=== PATIENT | male | born 1965 | race Caucasian/White ===

== ENCOUNTER 2022-12-02 16:31 | Emergency (ER) | payer BC, SELFPAY ==
[2022-12-02 16:34] VITALS: BP 161/112; PULSE 73; RESP 17; TEMP 37.1; O2SAT 95; BMI 34.8
--- NOTE | 2022-12-02 16:39 | ECG_ITS ---
[facility] Test Date: 2022-12-02 Pat Name: Manuel Zimmerman Department: Room: Gender: Male Radio Frequency Technician: : 1965 Requested By: Jerod Snow Order Number: [id number] Miguel Wu MD: Nino Kamara M.D. Measurements Intervals [place] Rate: 71 P: 28 WI: 186 QRS: 33 QRSD: 98 T: -8 QT: 360 QTc: 392 Interpretive Statements SINUS RHYTHM POSSIBLE LEFT ATRIAL ENLARGEMENT [-0.1mV P-WAVE IN V1/V2] No previous ECG available for comparison Electronically Signed On 12-03-2022 1:10:11 CDT by Nino Kamara M.D. [id number]
[2022-12-02 17:48] LABS: Basophils # 0.1 10^3/uL (0.0-0.1); Basophils % 0.6 %; Eosinophils # 0.1 10^3/uL (0.0-0.8); Eosinophils % 1.4 %; Hematocrit 47.7 % (42.0-52.0); Hemoglobin 15.7 g/dL (11.7-16.6); Lymphocytes # 1.5 10^3/uL (0.8-4.8); Lymphocytes % 17.8 %; Mean Corpuscular HGB Conc 32.9 g/dL (30.0-36.0); Mean Corpuscular Hemoglobin 29.7 pg (28.0-34.0); Mean Corpuscular Volume 90.3 fl (80-94); Mean Platelet Volume 9.8 fL (7.4-10.4); Monocytes # 0.6 10^3/uL (0.2-0.9); Monocytes % 7.4 %; Neutrophils # 6.12 10^3/uL (1.8-7.7); Neutrophils % 72.7 %; Nucleated Red Blood Cells % 0 %; Platelet Count 256 10^3/cmm (130-400); Red Blood Count 5.28 10^6/uL (4.1-5.3); Red Cell Distribution Width 13.2 % (12.1-15.1); White Blood Count 8.4 10^3/uL (4.0-10.0)
[2022-12-02 18:06] LABS: Troponin(5th) Baseline 9 ng/L (0-15)
[2022-12-02 18:15] LABS: Alanine Aminotransferase 27 U/L (0-41); Albumin Level 4.7 g/dL (3.5-5.2); Alkaline Phosphatase 80 U/L (40-130); Anion Gap 14.5 (5-19); Aspartate Amino Transferase 18 U/L (0-40); Blood Urea Nitrogen 13 mg/dL (6-20); C Reactive Protein 12.5 mg/L (0.0-4.9); Calcium 9.4 mg/dL (8.5-10.5); Carbon Dioxide 25 mmol/L (22-29); Chloride 102 mmol/L (98-107); Globulin 2.4 g/dL (1.3-4.6); Glomerular Filtration Rate 99.6 mL/min (90-130); Glucose 88 mg/dL (65-115); Lipase 19 U/L (13-60); NT Pro B Type Natriuretic Pept 36 pg/mL (0-125); Osmolality Calculated 284 mOsm/kg (285-295); Potassium 4.5 mmol/L (3.5-5.1); Sodium 137 mmol/L (136-145); Total Bilirubin 0.5 mg/dL (0.15-1.2); Total Protein 7.1 g/dL (6.6-8.7)
[2022-12-02 18:18] VITALS: BP 137/99; PULSE 66; RESP 14
--- NOTE | 2022-12-02 18:30 | ED_ITS ---
HPI - Chest Pain General: Chief Complaint: Chest Pain Stated Complaint: chest pain Time Seen by Provider: 12/02/22 18:17 History of Present Illness: Patient presents to the ER with intermittent chest pressure for the last 2 days. Patient states this is in the center of his chest. He has had no radiation or migration. Patient rates this is mild. Patient has no cardiac history such as previous MIs, stents, cardiomyopathy, heart failure. But it does run in the patient's family. There is nothing the patient can do that will bring this on nor stop it when it comes on. This is not exertionally induced. Review of Systems 2 General: Reports: 10 or more systems reviewed and unremarkable except in HPI and below Physical Exam Const: COMMON NORMALS: no acute distress, average body habitus, patient oriented x3, no limitations, healthy appearing, alert and well nourished HENMT: COMMON NORMALS: normocephalic, atraumatic, hearing grossly normal bilaterally, external ears normal, Normal external nose present and moist oral mucous membranes HEAD & SCALP: normocephalic and atraumatic NOSE: Normal external nose present EXTERNAL EAR: Yes external ears normal Eye: COMMON NORMALS: Equal, round and reactive pupils present, EOMs intact bilaterally, conjunctivae normal and no scleral icterus CONJUNCTIVA: Yes conjunctivae normal PUPIL: Yes Equal, round and reactive pupils present Neck/C-Spine: COMMON NORMALS: full ROM, no lymphadenopathy, supple, no meningeal signs, no JVD and Thyroid normal THYROID: Thyroid normal Chest: COMMONS NORMALS: normal inspection of the chest and normal palpation of entire chest wall Resp: COMMON NORMALS: normal respiratory effort, No retractions, No use of accessory muscles and clear to auscultation bilaterally AUSCULTATION: clear to auscultation bilaterally Cardio: COMMON NORMALS: no JVD, regular rate, regular rhythm, S1 normal heart sound present, S2 normal heart sound present, No gallops present (Cardio), No clicks present (Cardio), No murmurs present (Cardio) and No rub (Cardio) RATE: regular rate RHYTHM: regular rhythm HEART SOUNDS: S1 normal heart sound present and S2 normal heart sound present GI: COMMON NORMALS: Normal to inspection, nondistended, normoactive bowel sounds present, Soft to palpation, non-tender and No hepatosplenomegaly present PALPATION: Yes Soft to palpation and Yes No hepatosplenomegaly present : COMMON NORMALS: Yes no CVA tenderness BLADDER/KIDNEY EXAM: Yes no CVA tenderness Back/Pelvis: COMMON NORMALS: no CVA tenderness Neuro: COMMON NORMALS: patient oriented x3 SENSORIUM/ORIENTATION: Yes alert MENINGEAL SIGNS: Yes no meningeal signs Course Vital Signs: Vital signs: Vital Signs Temperature 98.7 F 12/02/22 16:34 Pulse Rate 64 12/02/22 18:51 Respiratory Rate 10 L 12/02/22 18:51 Blood Pressure 134/92 12/02/22 18:51 Pulse Oximetry 95 12/02/22 16:34 MDM - Chest Pain Medical Decision Making Patient presents to the ER with intermittent chest pressure over the last 2 days to 2 months. Chest pain work-up was started physical exam was benign lab work was negative. Is thought this is noncardiac chest pain. Patient be discharged home to follow-up with his PCP in approximately 1 week. Differential Diagnosis Unlikely acute massive pulmonary embolism, acute respiratory failure, acute myocardial infarction, cardiac arrest or sudden cardiac Medical Records I reviewed the patient's medical records. Lab Data I reviewed the patient's lab results. 12/02/22 17:33 12/02/22 17:33 Laboratory Results WBC 8.4 10^3/uL (4.0-10.0) 12/02/22 17: RBC 5.28 10^6/uL (4.1-5.3) 12/02/22 17:33 Hgb 15.7 g/dL (11.7-16.6) 12/02/22 17:33 Hct 47.7 % (42.0-52.0) 12/02/22 17:33 MCV 90.3 fl (80-94) 12/02/22 17:33 MCH 29.7 pg (28.0-34.0) 12/02/22 17:33 MCHC 32.9 g/dL (30.0-36.0) 12/02/22 17:33 RDW 13.2 % (12.1-15.1) 12/02/22 17:33 Plt Count 256 10^3/cmm (130-400) 12/02/22 17: MPV 9.8 fL (7.4-10.4) 12/02/22 17:33 Neut % (Auto) 72.7 % 12/02/22 17:33 Lymph % (Auto) 17.8 % 12/02/22 17:33 [facility] % (Auto) 7.4 % 12/02/22 17:33 Eos % (Auto) 1.4 % 12/02/22 17:33 Baso % (Auto) 0.6 % 12/02/22 17:33 Neut # (Auto) 6.12 10^3/uL (1.8-7.7) 12/02/22 17:33 Lymph # (Auto) 1.5 10^3/uL (0.8-4.8) 12/02/22 17:33 [facility] # (Auto) 0.6 10^3/uL (0.2-0.9) 12/02/22 17:33 Eos # (Auto) 0.1 10^3/uL (0.0-0.8) 12/02/22 17:33 Baso # (Auto) 0.1 10^3/uL (0.0-0.1) 12/02/22 17:33 Nucleated RBC % (auto) 0 % 12/02/22 17: Nucleated RBCs # 0.0 /100WBC 12/02/22 17:33 Sodium 137 mmol/L (136-145) 12/02/22 17:33 Potassium 4.5 mmol/L (3.5-5.1) 12/02/22 17:33 Chloride 102 mmol/L (98-107) 12/02/22 17:33 Carbon Dioxide 25 mmol/L (22-29) 12/02/22 17:33 Anion Gap 14.5 (5-19) 12/02/22 17:33 BUN 13 mg/dL (6-20) 12/02/22 17:33 Creatinine 0.8 mg/dL (0.7-1.2) 12/02/22 17:33 GFR Calculation 99.6 mL/min (90-130) 12/02/22 17:33 Glucose 88 mg/dL (65-115) 12/02/22 17:33 Calculated Osmolality 284 mOsm/kg (285-295) L 12/02/22 17:33 Calcium 9.4 mg/dL (8.5-10.5) 12/02/22 17:33 Total Bilirubin 0.5 mg/dL (0.15-1.2) 12/02/22 17:33 AST 18 U/L (0-40) 12/02/22 17:33 ALT 27 U/L (0-41) 12/02/22 17:33 Alkaline Phosphatase 80 U/L (40-130) 12/02/22 17:33 Troponin T Baseline 9 ng/L (0-15) 12/02/22 17:33 Troponin T 120 Minute 9.57 ng/L (0-15) 12/02/22 19:39 Delta Troponin T 0.57 ABS# (0-10) 12/02/22 19:39 C-Reactive Protein 12.5 mg/L (0.0-4.9) H 12/02/22 17:33 NT-Pro-B Natriuret Pep 36 pg/mL (0-125) 12/02/22 17:33 Total Protein 7.1 g/dL (6.6-8.7) 12/02/22 17:33 Albumin 4.7 g/dL (3.5-5.2) 12/02/22 17:33 Globulin 2.4 g/dL (1.3-4.6) 12/02/22 17:33 Lipase 19 U/L (13-60) 12/02/22 17:33 SARS-CoV-2 Ag (Rapid) negative (Negative) 12/02/22 18:50 Group A Strep Rapid Negative (Negative) 12/02/22 18:50 EKG Data EKG 1: I personally reviewed and interpreted this EKG as follows: EKG interpretation date: 12/02/22 EKG interpretation time: 16:39 Prior EKG tracings: not available for review Interpretation: EKG showed normal sinus rhythm with a ventricular rate of 71 bpm, VA interval 186, QT C of 392, QRS of 98, possible left atrial lodgment, no ST-T wave changes Discharge Plan Discharge Patient Disposition: Home Clinical Impression: Atypical chest pain Condition: Stable Discharge Orders: Discharge ED (Routine); Ordered 12/02/22 Ordered By: Thom Odell Patient Instructions: Chest Pain - Noncardiac Activity Restrictions/Additional Instructions: Please follow-up with your primary care physician in next 7 days as needed. Please return to the ER if your chest pain worsens or changes. Coding Level of Care Code ED [employer] Analyst for Masong Erick
[2022-12-02 18:51] VITALS: BP 134/92; PULSE 64; RESP 10
[2022-12-02 19:04] LABS: Rapid Strep A Test Negative (Negative)
[2022-12-02 19:15] LABS: SARS Covid-2 Antigen negative (Negative)
[2022-12-02 20:19] LABS: Troponin 5 2HR 9.57 ng/L (0-15)
[2022-12-02 20:22] LABS: Troponin 5 2HR Delta 0.57 ABS# (0-10)
[2022-12-02 20:26] VITALS: BP 122/73; PULSE 57; RESP 14
== END 2022-12-02 20:46 | disposition home or self-care (01) ==
PROVIDERS: Nurse Practitioner Family; Emergency Provider Emergency Medicine
DX: R07.89 Other chest pain (principal); Z20.822 Contact with and (suspected) exposure to COVID-19
CPT/HCPCS: 36415; 80053; 83690; 83880; 84484; 85025; 86140; 87081; 87426; 87880; 93005; 99285